=== PATIENT | male | born 1975 | race Caucasian/White ===

== ENCOUNTER 2017-07-16 14:34 | Emergency (ER) | payer MEDICAID ==
[~2017-07-16] VITALS: Ht 175.3 cm; Wt 79.4 kg
[~2017-07-16 14:34] MED LIST: AZITHROMYCIN 2250 MG PO; CEFUROXIME500 MG PO; COREG3.125 MG PO; DOXYCYCLINE 10100 MG PO; LASIX 40 MG TAB40 M2 PO; LASIX 80 MG TAB80 MG PO; LISINOPRIL2.5 M1 PO; LISINOPRIL2.5 MG PO; NAPROSYN500 MG PO; NOHOMEMEDICATIONS; POTASSIUM20 PO; ULTRAM 50MG TAB50 MG PO; XANAX1 MG PO
[2017-07-16] MEDS ORDERED: LASIX 40 MG TAB40 M2 PO (14:48)
[2017-07-16] MEDS ORDERED: LISINOPRIL10 MG PO (14:48)
[2017-07-16] MEDS ORDERED: KLOR-CON 1010 MEQ PO (14:48)
[2017-07-16] MEDS ORDERED: LOPRESSOR25 PO (14:49)
[2017-07-16 16:12] VITALS: BP 112/64
== END 2017-07-16 16:13 | disposition home or self-care (01) ==
LOC: M.ERS 14:34
DX: S20.212A Contusion of left front wall of thorax, initial encounter (principal); S00.83XA Contusion of other part of head, initial encounter; I50.9 Heart failure, unspecified; Z88.8 Allergy status to other drugs, medicaments and biological substances; Y04.0XXA Assault by unarmed brawl or fight, initial encounter; Y93.89 Activity, other specified; Y92.89 Other specified places as the place of occurrence of the external cause; Y99.8 Other external cause status

== ENCOUNTER 2017-07-31 18:49 | Emergency (ER) | payer MEDICAID ==
[~2017-07-31] VITALS: Ht 175.3 cm; Wt 79.4 kg
[~2017-07-31 18:49] MED LIST changes: +KLOR-CON 1010 MEQ PO; +LISINOPRIL10 MG PO; +LOPRESSOR25 PO
[2017-07-31] MEDS ORDERED: AMOXICILLIN 50500 MG PO (19:17)
[2017-07-31] MEDS ORDERED: TRAMADOL 50 MG50 MG PO (19:17)
[2017-07-31 19:27] VITALS: BP 113/64
== END 2017-07-31 19:29 | disposition home or self-care (01) ==
LOC: M.ERS 18:49
DX: S02.5XXA Fracture of tooth (traumatic), initial encounter for closed fracture (principal); N19 Unspecified kidney failure; I50.9 Heart failure, unspecified; Z88.8 Allergy status to other drugs, medicaments and biological substances; X58.XXXA Exposure to other specified factors, initial encounter; Y93.89 Activity, other specified; Y92.89 Other specified places as the place of occurrence of the external cause; Y99.8 Other external cause status

== ENCOUNTER → 2017-09-25 | Outpatient (CLI) | payer MEDICAID ==
[~2017-09-25] MED LIST changes: +AMOXICILLIN 50500 MG PO; +TRAMADOL 50 MG50 MG PO
[2017-09-25 16:14] LABS: CALCIUM 9.2 mg/dL (8.5-10.1); CREATININE 1.2 mg/dL (0.6-1.3); POTASSIUM 3.3 mmol/L (3.5-5.1)
== END ==
LOC: M.LAB 15:56
PROVIDERS: Nurse Practitioner
DX: I42.7 Cardiomyopathy due to drug and external agent (principal)

== ENCOUNTER → 2017-10-15 | Outpatient (CLI) | payer MEDICAID ==
--- NOTE | 2017-10-15 16:48 | 2DMMODE ---
[place] [address] 2 D/M-MODE ECHOCARDIOGRAM Name: JACOB PALMER Room: [facility]#: [id number] Admission: 10/15/17 Attend Phys: Fatuma Moreno, Discharge: Date of : 71 Date of Service: 10/15/17 1648 Report #: [id number] THIS REPORT FOR: //name// APPROVED REPORT Study performed: 10/15/2017 15:42:08 EXAM: Comprehensive 2D, Doppler, and color-flow Echocardiogram Patient Location: Out-Patient Status: routine BSA: 1.93 HR: 77 bpm BP: 93/76 mmHg Other Information Study Quality: Good Indications Cardiomyopathy 2D Dimensions LVEF(%): 29.40 (>50%) IVSd: 11.28 (7-11mm) LVOT Diam: 20.55 (18-24mm) LVDd: 52.99 mm PWd: 11.28 (7-11mm) Ascending Ao: 31.17 (22-36mm) LVDs: 45.63 (25-40mm) Aortic Root: 32.41 mm Chavez's LVEF: 29.40 % Aortic Valve AoV Peak Les.: 0.86 m/s AO Peak Gr.: 2.93 mmHg LVOT Max P.83 mmHg AO Mean Gr.: 1.88 mmHg LVOT Mean P.36 mmHg LVOT Max V: 0.84 m/s AO V2 VTI: 14.67 cm LVOT Mean V: 0.54 m/s FRANCISCO J (VTI): 2.78 cm2 LVOT V1 VTI: 12.28 cm Mitral Valve E/A Ratio: 0.76 MV Decel. Time: 294.22 ms MV E Max Les.: 0.55 m/s MV PHT: 85.32 ms MVA (PHT): 2.58 [place] [address] 2 D/M-MODE ECHOCARDIOGRAM Name: ESTELACOREY Room: [facility]#: [id number] Admission: 10/15/17 Attend Phys: Fatuma Moreno, Discharge: Date of : 71 Date of Service: 10/15/17 1648 Report #: [id number] TDI E/Lateral E': 6.11 E/Medial E': 7.86 Medial E' Les.: 0.07 m/s Lateral E' Les.: 0.09 m/s Pulmonary Valve PV Peak Les.: 0.76 m/s PV Peak Gr.: 2.32 mmHg Left Ventricle The left ventricle is normal size. There is global severe hypokinesis of the left ventricle. Mild concentric left ventricular hypertrophy. Left ventricular systolic function is severely decreased. LVEF is 25-30%. Grade I - abnormal relaxation pattern. Right Ventricle The right ventricle is normal size. The right ventricular systolic function is normal. Atria The left atrium size is normal. The right atrium size is normal. Aortic Valve The aortic valve is normal in structure. No aortic regurgitation is present. There is no aortic valvular stenosis. Mitral Valve The mitral valve is normal in structure. There is no mitral valve regurgitation noted. No evidence of mitral valve stenosis. Tricuspid Valve The tricuspid valve is normal in structure. There is no tricuspid valve regurgitation noted. Pulmonic Valve The pulmonary valve is normal in structure. There is no pulmonic valvular regurgitation. Great Vessels The aortic root is normal in size. IVC is normal in size and collapses with >50% inspiration Pericardium There is no pericardial effusion. <Conclusion> [place] [address] 2 D/M-MODE ECHOCARDIOGRAM Name: JACOB PALMER Room: [facility]#: [id number] Admission: 10/15/17 Attend Phys: Fatuma Moreno, Discharge: Date of : 71 Date of Service: 10/15/17 1648 Report #: [id number] Mild concentric left ventricular hypertrophy. LVEF is 25-30%. There is global severe hypokinesis of the left ventricle. <ELECTRONICALLY SIGNED> By: Jaime Louis MD, [facility] 10/15/17 1648 47 47 Jaime Louis MD, [facility] /INF
== END ==
LOC: M.CRD 15:00
DX: I51.7 Cardiomegaly (principal); I42.9 Cardiomyopathy, unspecified

== ENCOUNTER 2019-04-24 23:12 | Inpatient (IN) | payer OTHER ==
[~2019-04-24] VITALS: Ht 175.3 cm; Wt 77.1 kg
[2019-04-24 23:23] VITALS: BP 102/78
[2019-04-24 23:51] LABS: ABSOLUTE LYMPHOCYTES 1.8 thou/uL (0.8-5.3); ABSOLUTE MONOCYTES 0.5 thou/uL (0.0-1.2); ABSOLUTE NEUTROPHILS 3.5 thou/uL (1.6-8.1); BASOPHILS 0.7 %; EOSINOPHILS 0.7 %; HEMATOCRIT 39.4 % (42.0-52.0); HEMOGLOBIN 13.2 gm/dL (14.0-18.0); LYMPHOCYTES 30.7 %; MCH 27.9 pg (26.0-34.0); MCHC 33.6 g/dL (28.0-37.0); MCV 82.9 fL (80.0-100.0); MONOCYTES 9.3 %; MPV 8.5 fl. (7.2-11.1); NUCLEATED RBCS 0 /100WBC; PLATELET COUNT* 183 thou/uL (150-400); POLYS 58.6 %; RBC 4.74 mil/uL (4.50-6.00); RDW-CV 14.5 % (10.5-14.5); WBC 5.9 thou/uL (4.0-11.0)
[2019-04-24 23:53] LABS: CALCIUM 8.2 mg/dL (8.5-10.1); CREATININE 1.9 mg/dL (0.6-1.3)
[2019-04-24 23:57] LABS: INR 1.3; PROTIME 13.1 Seconds (9.20-11.50)
[2019-04-25] VITALS (7 sets, daily range): BP systolic 109–121; BP diastolic 61–92
[2019-04-25 00:03] LABS: ALBUMIN 3.4 g/dL (3.4-5.0); TOTAL BILIRUBIN 1.8 mg/dL (<0.1-1.0); TOTAL PROTEIN 6.3 g/dL (6.4-8.2)
[2019-04-25 00:16] LABS: INFLUENZA A ANTIGEN Negative (Negative); INFLUENZA B ANTIGEN Negative (Negative)
[2019-04-25 06:06] LABS: URINE BILIRUBIN NEGATIVE (Negative); URINE BLOOD NEGATIVE (Negative); URINE CLARITY CLEAR; URINE COLOR YELLOW; URINE GLUCOSE-RANDOM NEGATIVE (Negative); URINE KETONES NEGATIVE (Negative); URINE LEUKOCYTES-REFLEX NEGATIVE (Negative); URINE NITRITE-REFLEX NEGATIVE (Negative); URINE PROTEIN NEGATIVE (Negative); URINE SPECIFIC GRAVITY 1.025 (1.005-1.030); URINE UROBILINOGEN 0.2 E.U./dl (0.2-1.0)
--- NOTE | 2019-04-25 06:07 | NUR ---
PATIENT ARRIVED TO UNIT AT APPROX 0200. ADMISSION HISTORY AND ASSESSMENT COMPLETED AND CHARTED. VSS ON ROOM AIR, SINUS TACH ON MONITOR. NO COMPLAINTS THROUGHOUT THE NIGHT. FALL PRECAUTIONS IN PLACE DUE TO PATIENT STATING THAT HE FEELS TOO WEAK TO WALK WITHOUT ASSISTANCE. URINAL PROVIDED AND EDUCATION GIVEN ON NEED TO MONITOR STRICT I&O. CALL LIGHT WITHIN REACH. HOURLY ROUNDS COMPLETED. WILL CONTINUE WITH PLAN OF CARE.
[2019-04-25 06:14] LABS: AMP/METHAMP POSITIVE (Negative); BARBITURATES Negative (Negative); BENZODIAZEPINES POSITIVE (Negative); COCAINE Negative (Negative); METHADONE Negative (Negative); OPIATES Negative (Negative); PCP Negative (Negative); THC POSITIVE (Negative)
--- NOTE | 2019-04-25 11:16 | EKG ---
[place] [address] ELECTROCARDIOGRAM REPORT Name: JACOB PALMER Room: [address] ADM IN M.R.#: [id number] Admission: 04/25/19 Attend Phys: Taurus Euceda Discharge: Date of : 71 Report #: [id number] THIS REPORT FOR: //name// [facility] ED Test Date: 2019-04-24 Test Time: 23:44:10 Pat Name: JACOB PALMER Department: Room: [facility] Gender: M Date Night Caregiver: : 1975 Requested By: Meghan Knight Order Number: [id number] MD: Jaime Louis Measurements Intervals [place] Rate: 110 P: 64 NV: 138 QRS: 32 QRSD: 111 T: 216 QT: 346 QTc: 469 Interpretive Statements Sinus tachycardia Probable left atrial enlargement LVH with secondary repolarization abnormality Compared to ECG 12/06/2016 18:38:05 no change Electronically Signed On 04-25-2019 11:15:55 [employer] by Jaime Louis [email or web address] <ELECTRONICALLY SIGNED> By: Jaime Louis MD, [facility] 04/25/19 1115 2344 Jaime Louis MD, [facility] /EPI
[2019-04-25] MEDS ORDERED: LISINOPRIL2.5 MG PO (12:39)
[2019-04-25] MEDS ORDERED: EFFER-K 10 MEQ10 ME1 PO (12:41)
[2019-04-25] MEDS ORDERED: TOPROL XL25 MG PO (12:41)
--- NOTE | 2019-04-25 14:45 | NUR ---
Pt sound asleep when CM went to assess, will f/u later
--- NOTE | 2019-04-25 15:28 | NUR ---
CM ASSESSMENT: MET WITH PT IN ROOM. PT LIVES WITH ROOMMATES IN A HOUSE HE STATES HE RECENTLY STARTED USING METH AGAIN [employer] HAD IT AVAILABLE. PT QUIT TAKING HIS CARDIAC MEDS ABOUT 8 MONTHS AGO BECAUSE HE BELIEVED HE WAS GETTING BETTER AND NO LONGER NEEDED THEM. PT RECENTLY AT [facility] FOR SIMILAR SYMPTOMS. PT STATES HE CANNOT WORK BECAUSE HE IS SOA. DISCUSSED WITH PT APPLYING FOR DISABILITY AND MEDICAID. PT INTERESTED IN DRUG REHAB[facility] UPON DISCHARGE.
--- NOTE | 2019-04-25 15:52 | NUR ---
SPOKE TO [facility] [place] [facility] PT REQUESTED. THEY ONLY ACCEPT PRIVATE INSURANCE. COST IS $1000/DAY WHICH IS NOT FEASIBLE FOR PT. ALSO CALLED [facility] WITH [facility]. THEY HAVE WALK INS M-F 8 TO 11 AM FOR ASSESSMENTS. THIS INFORMATION PROVIDED TO PT ALONG WITH DIRECTIONS. MESSAGE LEFT FOR [facility] TO SEE PT TO ASSIST WITH MEDICAID
--- NOTE | 2019-04-25 18:14 | CON ---
[address] [address] CONSULTATION Name: ESTELAJACOB LAYNE Room: [address] ADM IN M.R.#: [id number] Admission: 04/25/19 Attend Phys: Taurus Euceda Discharge: Date of : 71 Report #: [id number] THIS REPORT FOR: //name// CC: LYNN physician/PCP Johnson Toussaint DATE OF SERVICE: 04/25/2019 HISTORY OF PRESENT ILLNESS: The patient is a 43-year-old single white male who I was asked to see in the hospital today after he complained of chest pain. The patient has an extensive past medical history. He has been admitted several times here to [place]. He was actually here in 2017 with systolic heart failure, felt to be secondary to IV drug abuse. He was noted to have chronic kidney disease. He has been noncompliant in the past because of lack of funds and no insurance. He was last admitted here in 2017 with pneumonia, cardiomyopathy, and nonsustained ventricular tachycardia. He has not been seen in the Cardiology Clinic since 09/2017. The patient has been seen by Psychiatry at [facility] in the past as well. His last echocardiogram in 10/2017 showed an ejection fraction of 30%. The patient quit taking lisinopril and metoprolol because of lack of insurance. He has been taking Lasix as needed for edema. The patient came to the Emergency Room last night complaining of shortness of breath. He had been taking Lasix. He did note a cough. He did complain of some chest discomfort if he took a deep breath. The patient had been seen at [facility] in February that suggested an ejection fraction of less than 20%. PAST MEDICAL HISTORY: He has no history of hypertension or diabetes. MEDICATIONS: His medications at the current time include only Lasix. FAMILY HISTORY: His father had stent. SOCIAL HISTORY: He is . He currently lives with a friend in [place]. 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 No smoking or alcohol abuse. He does use IV illicit drugs including methamphetamine, which he did recently. REVIEW OF SYSTEMS: No history of stroke, asthma, peptic ulcer disease, GI bleeding, or liver disease. He has chronic kidney disease. No cancer. PHYSICAL EXAMINATION: GENERAL: Revealed a middle-aged female who appeared in no distress. VITAL SIGNS: Blood pressure is 120/80. Pulse is 190. He is afebrile. HEENT: He was anicteric. Conjunctivae pink. Mucous membranes moist. NECK: Neck veins were not distended. CHEST: Decreased breath sounds at bases. CARDIOVASCULAR: Regular rate and rhythm. No S3 or [place] [address] CONSULTATION Name: ESTELAJACOB LAYNE Room: [address] IN M.R.#: [id number] Admission: 04/25/19 Attend Phys: Taurus Euceda Discharge: Date of : 71 Report #: [id number]. ABDOMEN: Soft. EXTREMITIES: Had no edema. Dorsalis pedis pulses 2+ bilaterally. SKIN: Warm and dry. NEUROLOGIC: Nonfocal. DIAGNOSTIC DATA: His ECG last night in the Emergency Room showed a sinus tachycardia, left ventricular hypertrophy, and repolarization changes. His workup in the Emergency Room last night; he had a portable chest x-ray that showed cardiomegaly and no evidence of pulmonary edema. LABORATORY WORK: Sodium 138, BUN 32, and creatinine 1.9, it has been as high as 2.0 in the past. His SGOT was 80. Bilirubin 1.8. SGPT 103. His troponins were all 0.06. BNP 5355. His white blood cell count 5.9 and hemoglobin 13.2. IMPRESSION AND RECOMMENDATIONS: 1. Dilated nonischemic cardiomyopathy. Suspect secondary to illicit drug use. I would recommend starting BERTHA inhibitor and metoprolol again. I would not recommend Aldactone due to chronic kidney disease. I would give Lasix as needed for edema. 2. History of IV substance abuse. 3. Chronic kidney disease. 4. Elevated liver function studies. Suspect passive congestion. <ELECTRONICALLY SIGNED> By: Jaime Louis MD, [facility]ACC 04/25/19 1814 0928 1302Dtaqueria Louis MD, FACC /nt
--- NOTE | 2019-04-25 18:54 | NUR ---
VSS, ASSUMED CARE IN THE AM, ASSESSMENT PERFORMED AND CHARTED, FALL PRECAUTIONS IN PLACE AND CALL LIGHT IN REACH, PT IS A&O4 AND ON RA AND IS TRACING ST ON THE MONITOR, PT HAS TAKEN SHOWER, AND IS IN BED SLEEPING NOW HOURLY ROUNDS COMPLETED
[2019-04-25 23:08] LABS: HIV-1/HIV-2 ANTIBODY Non Reactive (Non Reactive)
[2019-04-26] VITALS: BP 110/82
[2019-04-26 03:07] LABS: HEPATITIS B SURFACE AG Negative (Negative)
[2019-04-26 04:00] VITALS: BP 114/85
[2019-04-26 05:02] LABS: HEMATOCRIT 40.1 % (42.0-52.0); HEMOGLOBIN 13.5 gm/dL (14.0-18.0); MCH 27.8 pg (26.0-34.0); MCHC 33.6 g/dL (28.0-37.0); MCV 82.8 fL (80.0-100.0); MPV 8.6 fl. (7.2-11.1); RBC 4.84 mil/uL (4.50-6.00); RDW-CV 15.1 % (10.5-14.5); WBC 5.6 thou/uL (4.0-11.0)
[2019-04-26 05:29] LABS: ALBUMIN 2.9 g/dL (3.4-5.0); CREATININE 1.5 mg/dL (0.6-1.3); MAGNESIUM 1.9 mg/dL (1.8-2.4); PHOSPHORUS* 3.3 mg/dL (2.5-4.9); POTASSIUM 3.2 mmol/L (3.5-5.1)
--- NOTE | 2019-04-26 07:05 | NUR ---
CHANGE OF SHIFT, BEDSIDE REPORT GIVEN PATIENT SEEN AT BEDSIDE,IN BED ASLEEP ASSUMED PATIENT CARE
[2019-04-26 08:00] VITALS: BP 109/83
[2019-04-26 12:05] LABS: ALBUMIN 2.9 g/dL (3.4-5.0); DIRECT BILIRUBIN 0.3 mg/dL (<0.1-0.3); TOTAL BILIRUBIN 1.4 mg/dL (<0.1-1.0); TOTAL PROTEIN 5.7 g/dL (6.4-8.2)
[2019-04-26 12:10] VITALS: BP 116/84
[2019-04-26 16:23] VITALS: BP 108/74
[2019-04-26 20:00] VITALS: BP 112/86
[2019-04-27 00:06] VITALS: BP 110/78
[2019-04-27 03:53] VITALS: BP 99/62
[2019-04-27 05:41] LABS: CALCIUM 8.3 mg/dL (8.5-10.1); CREATININE 1.4 mg/dL (0.6-1.3); MAGNESIUM 1.8 mg/dL (1.8-2.4); POTASSIUM 4.4 mmol/L (3.5-5.1)
--- NOTE | 2019-04-27 07:15 | NUR ---
CHANGE OF SHIFT, BEDSIDE REPORT GIVEN PATIENT SEEN AT BEDSIDE, IN BED WATCHING TV ASSUMED PATIENT CARE
[2019-04-27 08:00] VITALS: BP 114/82
[2019-04-27 12:33] VITALS: BP 99/66
[2019-04-27 16:07] VITALS: BP 112/76
--- NOTE | 2019-04-27 19:01 | NUR ---
I ASSUMED CARE OF THE PATIENT AT 1300 FROM [facility]. PATIENT IS ALERT AND ORIENTED X4, HE IS UP AD RADHA. BED IS IN THE LOW LOCKED POSITON AND CALL LIGHT IS IN REACH. HOURLY ROUNDING IS COMPLETED AND PATIENT NEEDS ARE MET. PAIN IS DENIED AND ANXIETY IS MANAGED WITH PRN MEDS. I&O WAS CHARTED. WILL CONTINUE TO MONITOR.
[2019-04-28] VITALS: BP 101/70
[2019-04-28 03:31] VITALS: BP 112/76
[2019-04-28 06:10] LABS: CALCIUM 8.4 mg/dL (8.5-10.1); CREATININE 1.6 mg/dL (0.6-1.3); POTASSIUM 4.1 mmol/L (3.5-5.1)
--- NOTE | 2019-04-28 06:49 | NUR ---
ASSUMED CARE OF PATIENT AT 1900. PATIENT PLANNED FOR DISCHARGE FROM HOSPITAL IN MORNING. WHEN RELAYING THIS INFORMATION, THE PATIENT IS QUOTED SAYING "HEH, YEAH WE'LL SEE ABOUT THAT. IF THEY CAN." PATIENT'S TONE WAS DISMISSIVE OF THE PLAN OF CARE. CONCERNS WERE RELAYED TO CHARGE NURSE. PATIENT HAS BEEN RECEIVING PRN ATIVAN AT SCHEDULED TIMES DURING THE NIGHT AND HAS FREQUENTLY ASKED FOR MORE. NO SIGNIFICANT EVENTS THIS SHIFT OTHERWISE
[2019-04-28 10:08] VITALS: BP 100/72
[2019-04-28 10:48] VITALS: BP 100/72
[2019-04-28] MEDS ORDERED: LEVO-T50 MCG PO (11:24)
--- NOTE | 2019-04-28 11:30 | NUR ---
IV AND TELE DISCONTINUED. PT UNDERSTANDS ALL FOLLOW UP ORDERS. PT RELEASED INTO [facility] FOR ESCORT OFF OF PROPERTY. CARDIOLOGY FOLLOW UP MADE AND PT GIVEN SCRIPT.
== END 2019-04-28 11:30 | disposition home or self-care (01) | DRG 292 ==
LOC: M.ERS 23:12 → M.TBA-ER 04-25 00:45 → M.2W 04-25 00:45
PROVIDERS: Emergency Medicine; Family Medicine; Internal Medicine; Internal Medicine Cardiovascular Disease; ADMIT Internal Medicine
DX: I50.23 Acute on chronic systolic (congestive) heart failure (principal); N17.9 Acute kidney failure, unspecified; I42.0 Dilated cardiomyopathy; F15.10 Other stimulant abuse, uncomplicated; N18.9 Chronic kidney disease, unspecified; F12.90 Cannabis use, unspecified, uncomplicated; R00.0 Tachycardia, unspecified; F41.9 Anxiety disorder, unspecified; K76.0 Fatty (change of) liver, not elsewhere classified; K75.9 Inflammatory liver disease, unspecified; Z88.8 Allergy status to other drugs, medicaments and biological substances; Z79.899 Other long term (current) drug therapy

== ENCOUNTER 2019-05-04 09:41 | Emergency (ER) | payer OTHER ==
[~2019-05-04] VITALS: Ht 175.3 cm; Wt 77.1 kg
[~2019-05-04 09:41] MED LIST changes: +EFFER-K 10 MEQ10 ME1 PO; +LEVO-T50 MCG PO; +TOPROL XL25 MG PO
[2019-05-04 10:13] LABS: ABSOLUTE EOSINOPHILS 0.1 thou/uL (0.0-0.7); ABSOLUTE LYMPHOCYTES 1.4 thou/uL (0.8-5.3); ABSOLUTE MONOCYTES 0.3 thou/uL (0.0-1.2); BASOPHILS 0.8 %; EOSINOPHILS 1.4 %; HEMATOCRIT 40.6 % (42.0-52.0); HEMOGLOBIN 13.5 gm/dL (14.0-18.0); LYMPHOCYTES 29.6 %; MCH 27.4 pg (26.0-34.0); MCHC 33.2 g/dL (28.0-37.0); MCV 82.5 fL (80.0-100.0); MONOCYTES 5.7 %; NUCLEATED RBCS 0 /100WBC; PLATELET COUNT* 183 thou/uL (150-400); POLYS 62.5 %; RBC 4.92 mil/uL (4.50-6.00); RDW-CV 14.9 % (10.5-14.5); WBC 4.8 thou/uL (4.0-11.0)
[2019-05-04 10:18] LABS: APTT 27.5 Seconds (25.0-31.3); CALCIUM 7.8 mg/dL (8.5-10.1); CREATININE 1.4 mg/dL (0.6-1.3); INR 1.1; POTASSIUM 4.1 mmol/L (3.5-5.1)
[2019-05-04] MEDS ORDERED: LASIX 40 MG TAB40 M2 PO (10:32)
[2019-05-04] MEDS ORDERED: TOPROL XL25 MG PO (10:32)
[2019-05-04] MEDS ORDERED: LISINOPRIL2.5 MG PO (10:32)
[2019-05-04 10:33] LABS: ALBUMIN 3.5 g/dL (3.4-5.0); TOTAL PROTEIN 6.7 g/dL (6.4-8.2)
[2019-05-04 10:44] VITALS: BP 123/95
--- NOTE | 2019-05-05 10:39 | EKG ---
[place] [address] ELECTROCARDIOGRAM REPORT Name: JACOB PALMER Room: [facility].R.#: [id number] Admission: 05/04/19 Attend Phys: Discharge: 05/04/19 Date of : 71 Report #: [id number] THIS REPORT FOR: //name// [facility] ED Test Date: 2019-05-04 Test Time: 09:45:50 Pat Name: JACOB PALMER Department: Room: Gender: M Professional Engineer: : 1975 Requested By: Martín Salas Order Number: [id number] MD: Jaime Louis Measurements Intervals [place] Rate: 106 P: 68 NE: 150 QRS: 41 QRSD: 113 T: 196 QT: 363 QTc: 483 Interpretive Statements Sinus tachycardia Probable left atrial enlargement LVH with secondary repolarization abnormality Anterior ST elevation, probably due to LVH Borderline prolonged QT interval Compared to ECG 04/24/2019 23:44:10 no change Electronically Signed On 05-05-2019 10:38:34 [employer] by Jaime Louis [email or web address] <ELECTRONICALLY SIGNED> By: Jaime Louis MD, [facility] 05/05/19 1038 4 Jaime Louis MD, FAC /EPI
== END 2019-05-04 10:47 | disposition home or self-care (01) ==
LOC: M.ERS 09:41
PROVIDERS: Family Medicine
DX: F41.0 Panic disorder [episodic paroxysmal anxiety] (principal); R06.00 Dyspnea, unspecified; I50.9 Heart failure, unspecified; Z88.8 Allergy status to other drugs, medicaments and biological substances

== ENCOUNTER 2019-06-19 09:19 | Inpatient (IN) | payer OTHER ==
[~2019-06-19] VITALS: Ht 175.3 cm; Wt 76.7 kg
[2019-06-19 09:22] VITALS: BP 115/94
[2019-06-19] MEDS ORDERED: XARELTO10 M1 PO (09:25)
[2019-06-19 10:08] LABS: ABSOLUTE EOSINOPHILS 0.1 thou/uL (0.0-0.7); ABSOLUTE LYMPHOCYTES 1.4 thou/uL (0.8-5.3); ABSOLUTE MONOCYTES 0.4 thou/uL (0.0-1.2); ABSOLUTE NEUTROPHILS 4.2 thou/uL (1.6-8.1); BASOPHILS 0.8 %; EOSINOPHILS 2.2 %; HEMATOCRIT 39.3 % (42.0-52.0); HEMOGLOBIN 12.6 gm/dL (14.0-18.0); LYMPHOCYTES 22.4 %; MCH 26.5 pg (26.0-34.0); MCHC 32.1 g/dL (28.0-37.0); MCV 82.5 fL (80.0-100.0); MONOCYTES 6.6 %; MPV 8.8 fl. (7.2-11.1); NUCLEATED RBCS 0 /100WBC; PLATELET COUNT* 188 thou/uL (150-400); RBC 4.77 mil/uL (4.50-6.00); RDW-CV 19.4 % (10.5-14.5); WBC 6.1 thou/uL (4.0-11.0)
[2019-06-19 10:12] LABS: CALCIUM 9.1 mg/dL (8.5-10.1); CREATININE 1.2 mg/dL (0.6-1.3); POTASSIUM 4.3 mmol/L (3.5-5.1)
[2019-06-19 10:25] LABS: APTT 29.7 Seconds (25.0-31.3); INR 1.3; PROTIME 13.4 Seconds (9.20-11.50)
[2019-06-19 10:38] LABS: ALBUMIN 3.4 g/dL (3.4-5.0); CK-MB MASS 3.4 ng/mL (<0.5-3.6); MAGNESIUM 1.9 mg/dL (1.8-2.4); TOTAL BILIRUBIN 1.1 mg/dL (<0.1-1.0); TOTAL PROTEIN 7.1 g/dL (6.4-8.2)
[2019-06-19 12:42] LABS: AMP/METHAMP POSITIVE (Negative); BARBITURATES Negative (Negative); BENZODIAZEPINES Negative (Negative); COCAINE Negative (Negative); METHADONE Negative (Negative); OPIATES Negative (Negative); PCP Negative (Negative); THC POSITIVE (Negative)
--- NOTE | 2019-06-19 14:19 | EKG ---
[place] [address] ELECTROCARDIOGRAM REPORT Name: JACOB PALMER Room: [place] [address] ADM IN M.R.#: [id number] Admission: 06/19/19 Attend Phys: Jumana regan Sa Discharge: Date of : 71 Date of Service: 06/19/19922 Report #: [id number] THIS REPORT FOR: //name// [facility] ED Test Date: 2019-06-19 Test Time: 09:23:40 Pat Name: JACOB PALMER Department: Room: [facility] Gender: M Senior Service Technician: OCTAVIO : 1975 Requested By: Truong Dan Order Number: [id number] MD: Jaime Louis Measurements Intervals [place] Rate: 114 P: 60 NE: 147 QRS: 69 QRSD: 103 T: 258 QT: 346 QTc: 477 Interpretive Statements Sinus tachycardia Probable left atrial enlargement LVH with secondary repolarization abnormality Borderline prolonged QT interval Compared to ECG 05/04/2019 09:45:50 no change Electronically Signed On 06-19-2019 14:18:36 [employer] by Jaime Louis [email or web address] <ELECTRONICALLY SIGNED> By: Jaime Louis MD, [facility] 06/19/19 1418 0923 0923 Jaime Louis MD, [facility] /EPI
[2019-06-19 16:30] VITALS: BP 109/67
[2019-06-19 19:55] VITALS: BP 116/78
[2019-06-19 20:45] VITALS: BP 109/83
[2019-06-20] VITALS: BP 109/79
[2019-06-20 04:00] VITALS: BP 109/81
[2019-06-20 07:50] VITALS: BP 95/64
[2019-06-20 12:49] VITALS: BP 99/64
[2019-06-20 14:00] LABS: CALCIUM 8.8 mg/dL (8.5-10.1); CREATININE 1.3 mg/dL (0.6-1.3); MAGNESIUM 2.3 mg/dL (1.8-2.4); PHOSPHORUS* 4.3 mg/dL (2.5-4.9); POTASSIUM 4.1 mmol/L (3.5-5.1)
[2019-06-20 20:00] VITALS: BP 99/62
[2019-06-21] VITALS: BP 97/68
[2019-06-21 04:00] VITALS: BP 101/53
[2019-06-21 05:34] LABS: CALCIUM 8.3 mg/dL (8.5-10.1); CREATININE 1.4 mg/dL (0.6-1.3); POTASSIUM 4.3 mmol/L (3.5-5.1)
[2019-06-21 07:53] VITALS: BP 103/68
[2019-06-21 12:12] VITALS: BP 156/64
--- NOTE | 2019-06-21 13:40 | CON ---
[address] [address] CONSULTATION Name: ESTELAJACOB LAYNE Room: [address] IN M.R.#: [id number] Admission: 06/19/19 Attend Phys: Jumana Terrazas Discharge: Date of : 71 Report #: [id number] THIS REPORT FOR: //name// cc: LYNN Stanley family physician/PCP LYNN Stanley family physician/PCP ~ THIS REPORT FOR: //name// CC: Jaime Louis FAM physician/PCP Jumana Renteria DATE OF SERVICE: 06/20/2019 CARDIOLOGY CONSULTATION HISTORY OF PRESENT ILLNESS: The patient is a 43-year-old single white male who I was asked to see in the hospital today after he complained of being short of breath. The patient has a previous history of meth addiction. He has been here in 2017 with shortness of breath. He was found to have evidence of a cardiomyopathy. He has been treated with BERTHA inhibitor and beta mirela. Unfortunately, because of lack of insurance, he ran out of his medications in the past. He was actually admitted here last to [place] in April. He notes that after his discharge, he was admitted to [facility] with shortness of breath and was found to have a clot in his left ventricle. He is placed on Xarelto. He has also recently admitted to [facility] with shortness of breath. He was just discharged last week. He came to the Emergency Room yesterday being short of breath and a cough. He has had no significant edema. He denies waking up at night. He notes occasional hotness in his chest. He notes occasional irregular heartbeat, but no syncope. PAST MEDICAL HISTORY: Significant for no surgical procedures. No history of hypertension, diabetes, hyperlipidemia. CURRENT MEDICATIONS: Consists of Toprol XL 25 mg a day, lisinopril 2.5 mg a day, Lasix 40 mg a day. He quit taking the Xarelto because of bleeding. He is on Synthroid. ALLERGIES: HALDOL. FAMILY HISTORY: Significant that his father had coronary artery bypass surgery. SOCIAL HISTORY: He is single, never been , no children. Currently lives with his dad in [place]. He drinks rarely occasionally. No history of smoking. He has a history of IV drug abuse including methamphetamine, does [place] [address] CONSULTATION Name: ESTELAJACOB LAYNE Room: [address]#: [id number] Admission: 06/19/19 Attend Phys: Jumana Terrazas Discharge: Date of : 71 Report #: [id number] REVIEW OF SYSTEMS: He has a history of stroke. He has a dry cough. No liver disease, no kidney disease, no cancer. No psychiatric illness. No chronic skin condition. PHYSICAL EXAMINATION: GENERAL: Elderly male, lying in bed, appeared in no distress. VITAL SIGNS: His blood pressure is only 100 systolic, pulse is 90, he is afebrile. HEENT: He was anicteric. Conjunctivae pink. Mucous membranes moist. NECK: Veins do not appear distended. CHEST: Clear to auscultation. CARDIOVASCULAR: Regular rate and rhythm. S3 gallop. ABDOMEN: Soft. EXTREMITIES: Had no edema. SKIN: Warm, dry. NEUROLOGIC: Nonfocal. RADIOLOGICAL DATA: His ECG showed a sinus tachycardia, nonspecific T-wave changes. His x-rays last night in the Emergency Room showed cardiomegaly, clear lung farias. LABORATORY DATA: Sodium 140, potassium 4.3, creatinine 1.2. Liver function studies were normal. Troponins all 0.06. BNP 3713. His white blood cell count 6.1, hemoglobin 12.6. IMPRESSION AND RECOMMENDATIONS: 1. Dilated cardiomyopathy. I would continue metoprolol. I would consider switching from lisinopril to losartan because of chronic cough. Continue Lasix. Consider adding Aldactone. 2. Previous thrombus noted in his left ventricle, suspect secondary to his cardiomyopathy. I would not recommend Xarelto at this time. 3. History of IV drug abuse. <ELECTRONICALLY SIGNED> By: Jaime Louis MD, FACC 06/21/19 1340 1252 2127Jaime Louis MD, FAC /nt
[2019-06-21 20:00] VITALS: BP 102/69
[2019-06-22] VITALS: BP 92/61
[2019-06-22 04:00] VITALS: BP 98/64
[2019-06-22 07:52] VITALS: BP 91/56
[2019-06-22 08:28] VITALS: BP 91/56
[2019-06-22] MEDS ORDERED: LEVAQUIN 750 M750 MG PO (09:48)
[2019-06-22] MEDS ORDERED: SPIRONOLACTONE25 MG PO (09:51)
[2019-06-22] MEDS ORDERED: CARVEDILOL3.125 MG PO (09:51)
== END 2019-06-22 14:45 | disposition home or self-care (01) | DRG 177 ==
LOC: M.ERS 09:19 → M.TBA-ER 12:34 → M.2W 19:46
PROVIDERS: Emergency Medicine; Internal Medicine Cardiovascular Disease; ADMIT Family Medicine
DX: J15.6 Pneumonia due to other Gram-negative bacteria (principal); I50.23 Acute on chronic systolic (congestive) heart failure; D68.59 Other primary thrombophilia; I42.0 Dilated cardiomyopathy; I25.5 Ischemic cardiomyopathy; F41.9 Anxiety disorder, unspecified; R00.0 Tachycardia, unspecified; E03.9 Hypothyroidism, unspecified; F19.10 Other psychoactive substance abuse, uncomplicated; Z82.49 Family history of ischemic heart disease and other diseases of the circulatory system; Z23 Encounter for immunization; Z88.8 Allergy status to other drugs, medicaments and biological substances; Z91.14 Patient's other noncompliance with medication regimen; Z79.899 Other long term (current) drug therapy

== ENCOUNTER 2019-07-12 23:31 | Inpatient (IN) | payer OTHER ==
[~2019-07-12] VITALS: Ht 175.3 cm; Wt 73.9 kg
[~2019-07-12 23:31] MED LIST changes: +CARVEDILOL3.125 MG PO; +LEVAQUIN 750 M750 MG PO; +SPIRONOLACTONE25 MG PO; +XARELTO10 M1 PO
[2019-07-12 23:33] VITALS: BP 133/97
[2019-07-13 00:21] LABS: ABSOLUTE EOSINOPHILS 0.1 thou/uL (0.0-0.7); ABSOLUTE LYMPHOCYTES 1.6 thou/uL (0.8-5.3); ABSOLUTE MONOCYTES 0.5 thou/uL (0.0-1.2); ABSOLUTE NEUTROPHILS 4.7 thou/uL (1.6-8.1); BASOPHILS 0.7 %; EOSINOPHILS 1.3 %; HEMATOCRIT 41.3 % (42.0-52.0); HEMOGLOBIN 13.4 gm/dL (14.0-18.0); LYMPHOCYTES 22.7 %; MCHC 32.5 g/dL (28.0-37.0); MONOCYTES 7.9 %; MPV 8.2 fl. (7.2-11.1); NUCLEATED RBCS 0 /100WBC; PLATELET COUNT* 206 thou/uL (150-400); POLYS 67.4 %; RBC 5.16 mil/uL (4.50-6.00); RDW-CV 18.7 % (10.5-14.5)
[2019-07-13 00:25] LABS: CALCIUM 9.4 mg/dL (8.5-10.1); CREATININE 1.4 mg/dL (0.6-1.3); POTASSIUM 4.2 mmol/L (3.5-5.1)
[2019-07-13 00:29] LABS: APTT 26.9 Seconds (25.0-31.3); INR 1.4; PROTIME 13.9 Seconds (9.20-11.50)
[2019-07-13 00:37] LABS: ALBUMIN 4.2 g/dL (3.4-5.0); CK-MB MASS 5.2 ng/mL (<0.5-3.6); MAGNESIUM 2.2 mg/dL (1.8-2.4); TOTAL PROTEIN 7.3 g/dL (6.4-8.2)
[2019-07-13 03:44] VITALS: BP 117/81
[2019-07-13 05:51] LABS: AMP/METHAMP POSITIVE (Negative); BARBITURATES Negative (Negative); BENZODIAZEPINES POSITIVE (Negative); COCAINE Negative (Negative); METHADONE Negative (Negative); OPIATES Negative (Negative); PCP Negative (Negative); THC POSITIVE (Negative)
[2019-07-13 08:00] VITALS: BP 116/77
[2019-07-13 12:15] VITALS: BP 112/82
[2019-07-13 15:48] VITALS: BP 102/79
[2019-07-13 18:34] LABS: URINE BILIRUBIN NEGATIVE (Negative); URINE BLOOD NEGATIVE (Negative); URINE CLARITY CLEAR; URINE COLOR YELLOW; URINE GLUCOSE-RANDOM NEGATIVE (Negative); URINE KETONES NEGATIVE (Negative); URINE LEUKOCYTES-REFLEX NEGATIVE (Negative); URINE NITRITE-REFLEX NEGATIVE (Negative); URINE PROTEIN NEGATIVE (Negative); URINE SPECIFIC GRAVITY 1.025 (1.005-1.030)
[2019-07-13 20:00] VITALS: BP 110/81
[2019-07-14] VITALS: BP 98/80
[2019-07-14 04:00] VITALS: BP 108/67
[2019-07-14 04:03] LABS: ABSOLUTE EOSINOPHILS 0.1 thou/uL (0.0-0.7); ABSOLUTE LYMPHOCYTES 1.2 thou/uL (0.8-5.3); ABSOLUTE MONOCYTES 0.5 thou/uL (0.0-1.2); ABSOLUTE NEUTROPHILS 3.1 thou/uL (1.6-8.1); BASOPHILS 0.6 %; EOSINOPHILS 1.7 %; HEMATOCRIT 38.9 % (42.0-52.0); HEMOGLOBIN 12.6 gm/dL (14.0-18.0); LYMPHOCYTES 25.4 %; MCH 25.8 pg (26.0-34.0); MCHC 32.4 g/dL (28.0-37.0); MCV 79.4 fL (80.0-100.0); MONOCYTES 9.4 %; MPV 8.2 fl. (7.2-11.1); NUCLEATED RBCS 0 /100WBC; PLATELET COUNT* 158 thou/uL (150-400); POLYS 62.9 %; RDW-CV 18.7 % (10.5-14.5); WBC 4.9 thou/uL (4.0-11.0)
[2019-07-14 04:33] LABS: ALBUMIN 3.2 g/dL (3.4-5.0); CALCIUM 8.3 mg/dL (8.5-10.1); CREATININE 1.3 mg/dL (0.6-1.3); TOTAL BILIRUBIN 1.5 mg/dL (<0.1-1.0); TOTAL PROTEIN 5.9 g/dL (6.4-8.2)
[2019-07-14 08:00] VITALS: BP 113/79
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
--- NOTE | 2019-07-14 10:23 | EKG ---
[place] [address] ELECTROCARDIOGRAM REPORT Name: JACOB PALMER Room: [address] ADM IN M.R.#: [id number] Admission: 07/13/19 Attend Phys: Valeriy Maria, Discharge: Date of : 71 Date of Service: 07/12/19 2334 Report #: [id number] THIS REPORT FOR: //name// [facility] ED Test Date: 2019-07-12 Test Time: 23:34:02 Pat Name: JACOB PALMER Department: Room: [facility] Gender: M Residential Care Facility Manager: LOS : 1975 Requested By: Martín Salas Order Number: [id number] MD: Jaime Louis Measurements Intervals [place] Rate: 99 P: 61 IA: 156 QRS: 19 QRSD: 116 T: 166 QT: 385 QTc: 495 Interpretive Statements Sinus rhythm Probable left atrial enlargement Left ventricular hypertrophy Nonspecific T abnormalities, lateral leads Borderline prolonged QT interval Compared to ECG 06/19/2019 09:23:40 T-wave abnormality now present Sinus tachycardia no longer present Electronically Signed On 07-14-2019 10:22:21 CDT by Jaime Louis [email or web address] <ELECTRONICALLY SIGNED> By: Jaime Louis MD, FACC 07/14/19 1022 2334 2334 Jaime Louis MD, FAC /EPI
[2019-07-14] MEDS ORDERED: LISINOPRIL2.5 MG PO ×2 (10:25→10:28)
[2019-07-14 10:26] LABS: CALCIUM 7.7 mg/dL (8.5-10.1); CREATININE 1.2 mg/dL (0.6-1.3); POTASSIUM 3.8 mmol/L (3.5-5.1)
[2019-07-14] MEDS ORDERED: EFFER-K 10 MEQ10 ME1 PO (10:28)
[2019-07-14] MEDS ORDERED: LEVO-T50 MCG PO (10:28)
[2019-07-14] MEDS ORDERED: CARVEDILOL3.125 MG PO (10:28)
[2019-07-14] MEDS ORDERED: SPIRONOLACTONE25 MG PO (10:28)
[2019-07-14] MEDS ORDERED: LASIX 40 MG TAB40 M2 PO (10:28)
[2019-07-14 11:36] VITALS: BP 113/79
[2019-07-14 12:03] VITALS: BP 108/77
--- NOTE | 2019-07-14 12:49 | 2DMMODE ---
[place] [address] 2 D/M-MODE ECHOCARDIOGRAM Name: ESTELAJACOB LAYNE Room: [address] ADM [place] .R.#: [id number] Admission: 07/13/19 Attend Phys: Valeriy Maria, Discharge: Date of : 71 Date of Service: 07/14/19 1248 Report #: [id number] THIS REPORT FOR: cc: FAM - No family physician/PCP FAM - No family physician/PCP Jaime Louis MD [facility] ~ APPROVED REPORT Study performed: 07/14/2019 11:24:17 EXAM: Comprehensive 2D, Doppler, and color-flow Echocardiogram Patient Location: In-Patient Room #: [facility] Status: routine BSA: 1.89 HR: 103 bpm BP: 113/79 mmHg Rhythm: NSR Other Information Study Quality: Excellent Indications Dyspnea Elevated Troponin Chest Pain 2D Dimensions IVSd: 13.04 (7-11mm) LVOT Diam: 24.07 (18-24mm) LVDd: 67.84 mm PWd: 12.75 (7-11mm) Ascending Ao: 30.03 (22-36mm) LVDs: 66.68 (25-40mm) Aortic Root: 33.72 mm Volumes Left Atrial Volume (Systole) LA ESV Index: 53.70 mL/m2 Aortic Valve AoV Peak Les.: 0.90 m/s AO Peak Gr.: 3.27 mmHg LVOT Max P.87 mmHg AO Mean Gr.: 1.97 mmHg LVOT Mean P.45 mmHg LVOT Max V: 0.47 m/s AO V2 VTI: 12.89 cm LVOT Mean V: 0.31 m/[place] [address] 2 D/M-MODE ECHOCARDIOGRAM Name: JACOB PALMER Room: [address] IN M.R.#: [id number] Admission: 07/13/19 Attend Phys: Valeriy Maria, Discharge: Date of : 71 Date of Service: 07/14/19 1248 Report #: [id number] FRANCISCO J (VTI): 2.34 cm2 LVOT V1 VTI: 6.62 cm Mitral Valve E/A Ratio: 1.49 MV Decel. Time: 103.60 ms MV E Max Les.: 0.93 m/s MV PHT: 30.04 ms MVA (PHT): 7.32 cm2 TDI E/Lateral E': 9.30 E/Medial E': 15.50 Medial E' Les.: 0.06 m/s Lateral E' Les.: 0.10 m/s Pulmonary Valve PV Peak Les.: 0.72 m/s PV Peak Gr.: 2.10 mmHg Tricuspid Valve RAP Estimate: 15.00 mmHg TR Peak Gr.: 41.44 mmHg RVSP: 56.00 mmHg PA Pressure: 56.00 mmHg Left Ventricle Left ventricle is moderately dilated. There is global hypokinesis of the left ventricle. Mild concentric left ventricular hypertrophy. Left ventricular systolic function is severely decreased. LVEF is 10-15%. Grade I - abnormal relaxation pattern. Right Ventricle The right ventricle is normal size. The right ventricular systolic function is normal. Atria Left atrium is severely dilated. The right atrium size is normal. Aortic Valve The aortic valve is normal in structure. No aortic regurgitation is present. There is no aortic valvular stenosis. Mitral Valve There is mitral annular calcification. Mild mitral regurgitation. No evidence of mitral valve stenosis. Tricuspid Valve The tricuspid valve is normal in structure. [place] [address] 2 D/M-MODE ECHOCARDIOGRAM Name: ESTELAJACOB LAYNE Room: [address] [facility]#: [id number] Admission: 07/13/19 Attend Phys: Valeriy Maria, Discharge: Date of : 71 Date of Service: 07/14/19 1248 Report #: [id number] regurgitation. estimated pa pressure 50 mm Hg Pulmonic Valve The pulmonary valve is normal in structure. There is no pulmonic valvular regurgitation. Great Vessels The aortic root is normal in size. IVC is dilated and collapses <50% with inspiration. Pericardium Trace pericardial effusion. <Conclusion> Left ventricle is moderately dilated. Mild concentric left ventricular hypertrophy. LVEF is 10-15%. Mild mitral regurgitation. Left atrium is severely dilated. Moderate tricuspid regurgitation. estimated pa pressure 50 mm Hg <ELECTRONICALLY SIGNED> By: Jaime Louis MD, FACC 07/14/19 1248 1248 1248 Jaime Louis MD, FACC /INF
== END 2019-07-14 20:00 | disposition home or self-care (01) | DRG 292 ==
LOC: M.ERS 23:31 → M.2W 07-13 02:50 → M.TBA-ER 07-13 02:50 → M.2W 07-13 04:11
PROVIDERS: Family Medicine; Internal Medicine; ADMIT Internal Medicine
DX: I50.23 Acute on chronic systolic (congestive) heart failure (principal); I42.9 Cardiomyopathy, unspecified; R65.10 Systemic inflammatory response syndrome (SIRS) of non-infectious origin without acute organ dysfunction; F15.10 Other stimulant abuse, uncomplicated; F12.10 Cannabis abuse, uncomplicated; F13.10 Sedative, hypnotic or anxiolytic abuse, uncomplicated; F41.9 Anxiety disorder, unspecified; E03.9 Hypothyroidism, unspecified; Z91.19 Patient's noncompliance with other medical treatment and regimen; Z79.899 Other long term (current) drug therapy; Z88.8 Allergy status to other drugs, medicaments and biological substances; Z83.3 Family history of diabetes mellitus; Z82.49 Family history of ischemic heart disease and other diseases of the circulatory system

== ENCOUNTER 2019-07-19 20:34 | Inpatient (IN) | payer OTHER ==
[~2019-07-19] VITALS: Ht 175.3 cm; Wt 73.9 kg
[2019-07-19 20:40] VITALS: BP 114/84
[2019-07-19 21:32] LABS: ABSOLUTE EOSINOPHILS 0.1 thou/uL (0.0-0.7); ABSOLUTE LYMPHOCYTES 1.4 thou/uL (0.8-5.3); ABSOLUTE MONOCYTES 0.4 thou/uL (0.0-1.2); ABSOLUTE NEUTROPHILS 3.3 thou/uL (1.6-8.1); BASOPHILS 0.9 %; EOSINOPHILS 1.7 %; HEMATOCRIT 38.8 % (42.0-52.0); HEMOGLOBIN 12.5 gm/dL (14.0-18.0); LYMPHOCYTES 27.4 %; MCH 25.5 pg (26.0-34.0); MCHC 32.1 g/dL (28.0-37.0); MCV 79.5 fL (80.0-100.0); MONOCYTES 7.7 %; MPV 8.1 fl. (7.2-11.1); NUCLEATED RBCS 0 /100WBC; PLATELET COUNT* 172 thou/uL (150-400); POLYS 62.3 %; RBC 4.89 mil/uL (4.50-6.00); RDW-CV 18.4 % (10.5-14.5); WBC 5.3 thou/uL (4.0-11.0)
[2019-07-19 21:41] LABS: CALCIUM 8.3 mg/dL (8.5-10.1); CREATININE 1.4 mg/dL (0.6-1.3); POTASSIUM 3.7 mmol/L (3.5-5.1)
[2019-07-19 21:50] LABS: ALBUMIN 3.7 g/dL (3.4-5.0); TOTAL BILIRUBIN 1.8 mg/dL (<0.1-1.0); TOTAL PROTEIN 6.5 g/dL (6.4-8.2)
[2019-07-19 21:51] LABS: INFLUENZA A ANTIGEN Negative (Negative); INFLUENZA B ANTIGEN Negative (Negative)
[2019-07-20 00:04] VITALS: BP 117/85
[2019-07-20 00:05] VITALS: BP 108/70
[2019-07-20 06:20] VITALS: BP 108/80
--- NOTE | 2019-07-20 06:34 | NUR ---
PATIENT VERY ANXIOUS SUSPECT POSSIBLE DRUG WITHDRAW. HE HAS RAN SINUS RHYTHM SHOWING ST DEPRESSION AND TACHY. FLUIDS RUNNING 100 MLS ALL SHIFT SINCE HE ARRIVED AT 0100. TROPONIN ELEVATED AT 0.06. HE DID NOT REPORT ANY NAUSEA, PAIN OR VOMITING. I ASKED FOR A URINE SAMPLE UPON ARRIVAL, AT 0635 STILL NO SAMPLE. HE HAS A SLIGHT COUGH AND AFEBRILE. COVID PENDING. UP AD RADHA TO RESTROOM AND ALERT AND ORIENTED. WILL CONTINUE TO MONITOR.
[2019-07-20 13:41] LABS: HEMOGLOBIN 12.1 gm/dL (14.0-18.0); MCH 25.7 pg (26.0-34.0); MCHC 32.6 g/dL (28.0-37.0); MCV 78.9 fL (80.0-100.0); MPV 8.3 fl. (7.2-11.1); RBC 4.69 mil/uL (4.50-6.00); WBC 3.7 thou/uL (4.0-11.0)
[2019-07-20 14:02] LABS: URINE BILIRUBIN NEGATIVE (Negative); URINE BLOOD NEGATIVE (Negative); URINE CLARITY CLEAR; URINE COLOR YELLOW; URINE GLUCOSE-RANDOM NEGATIVE (Negative); URINE KETONES NEGATIVE (Negative); URINE LEUKOCYTES-REFLEX NEGATIVE (Negative); URINE NITRITE-REFLEX NEGATIVE (Negative); URINE PROTEIN NEGATIVE (Negative); URINE SPECIFIC GRAVITY 1.025 (1.005-1.030)
[2019-07-20 14:05] LABS: ANION GAP 11 mmol/L (7-16); BUN 22 mg/dL (7-18); CHLORIDE 105 mmol/L (98-107); CO2 24 mmol/L (21-32); CREATININE 1.2 mg/dL (0.6-1.3); GLUCOSE 102 mg/dL (70-99); POTASSIUM 3.6 mmol/L (3.5-5.1); SODIUM 140 mmol/L (136-145); TROPONIN-I LEVEL <0.06 ng/mL (<0.06)
[2019-07-20 15:28] LABS: AMP/METHAMP POSITIVE (Negative); BARBITURATES Negative (Negative); BENZODIAZEPINES POSITIVE (Negative); COCAINE Negative (Negative); METHADONE Negative (Negative); OPIATES Negative (Negative); PCP Negative (Negative); THC POSITIVE (Negative)
[2019-07-20] MEDS ORDERED: LEVAQUIN 500 M500 M3 PO (15:53)
[2019-07-20 17:32] VITALS: BP 108/80
--- NOTE | 2019-07-20 20:17 | NUR ---
PT DISCHARGED TO HOME IN STABLE CONDITION. INSTRUCTIONS,TREATMENTS,MEDICATIONS,ACTIVITY, FOLLOW UP INFORMATION AND SELF CARE REVIEWED WITH PT AND PT REPORTS UNDERSTANDING WITHOUT FURTHER QUESTIONS. 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
--- NOTE | 2019-07-21 10:14 | EKG ---
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 : 1975 Requested By: Ngoc Claros Order Number: [id number] Sallie MD: Jaime Louis Measurements Intervals [place] Rate: 115 P: 69 LA: 148 QRS: 11 QRSD: 111 T: 155 QT: 355 QTc: 491 Interpretive Statements Sinus tachycardia Probable left atrial enlargement LVH with IVCD and secondary repol abnrm Borderline prolonged QT interval Baseline wander in lead(s) V6 Compared to ECG 07/12/2019 23:34:02 Early repolarization now present Sinus rhythm no longer present Electronically Signed On 07-21-2019 10:12:39 CDT by Jaime Louis [email or web address] <ELECTRONICALLY SIGNED> By: Jaime Louis MD, [facility] 07/21/191011 41 41 Jaime Louis MD, [facility] /EPI
== END 2019-07-20 22:40 | disposition home or self-care (01) | DRG 202 ==
LOC: M.ERS 20:34 → M.TBA-ER 22:19 → M.ORTHSURG 23:58
PROVIDERS: Physician Assistant; ADMIT Internal Medicine
DX: J40 Bronchitis, not specified as acute or chronic (principal); I42.9 Cardiomyopathy, unspecified; I50.20 Unspecified systolic (congestive) heart failure; F12.90 Cannabis use, unspecified, uncomplicated; N18.2 Chronic kidney disease, stage 2 (mild); Z03.818 Encounter for observation for suspected exposure to other biological agents ruled out; Z88.8 Allergy status to other drugs, medicaments and biological substances; Z91.19 Patient's noncompliance with other medical treatment and regimen

== ENCOUNTER 2019-08-12 16:50 | Emergency (ER) | payer MEDICAID ==
[~2019-08-12] VITALS: Ht 175.3 cm; Wt 74.8 kg
[~2019-08-12 16:50] MED LIST changes: +LEVAQUIN 500 M500 M3 PO
[2019-08-12 17:16] LABS: ABSOLUTE EOSINOPHILS 0.1 thou/uL (0.0-0.7); ABSOLUTE LYMPHOCYTES 1.3 thou/uL (0.8-5.3); ABSOLUTE MONOCYTES 0.4 thou/uL (0.0-1.2); ABSOLUTE NEUTROPHILS 2.8 thou/uL (1.6-8.1); BASOPHILS 0.9 %; EOSINOPHILS 2.3 %; HEMATOCRIT 38.7 % (42.0-52.0); HEMOGLOBIN 12.6 gm/dL (14.0-18.0); MCH 25.6 pg (26.0-34.0); MCHC 32.5 g/dL (28.0-37.0); MCV 78.9 fL (80.0-100.0); MONOCYTES 7.8 %; NUCLEATED RBCS 0 /100WBC; PLATELET COUNT* 188 thou/uL (150-400); RBC 4.91 mil/uL (4.50-6.00); RDW-CV 18.5 % (10.5-14.5); WBC 4.5 thou/uL (4.0-11.0)
[2019-08-12 17:25] LABS: CALCIUM 8.4 mg/dL (8.5-10.1); CREATININE 1.4 mg/dL (0.6-1.3); POTASSIUM 4.1 mmol/L (3.5-5.1)
[2019-08-12 17:35] LABS: ALBUMIN 3.3 g/dL (3.4-5.0); TOTAL BILIRUBIN 0.8 mg/dL (<0.1-1.0); TOTAL PROTEIN 6.1 g/dL (6.4-8.2)
[2019-08-12 17:41] LABS: APTT 25.1 Seconds (25.0-31.3); INR 1.2
[2019-08-12 18:37] LABS: AMP/METHAMP Negative (Negative); BARBITURATES Negative (Negative); BENZODIAZEPINES Negative (Negative); COCAINE POSITIVE (Negative); METHADONE Negative (Negative); OPIATES Negative (Negative); PCP Negative (Negative); THC POSITIVE (Negative)
[2019-08-12 19:52] VITALS: BP 106/68
--- NOTE | 2019-08-13 17:30 | EKG ---
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[place] [facility] [place] 1975 Requested By: Sarah Sellers Order Number: [id number] MD: Matthew Vivas Measurements Intervals [place] Rate: 94 P: 71 DE: 149 QRS: 46 QRSD: 114 T: 237 QT: 395 QTc: 495 Interpretive Statements Sinus rhythm Probable left atrial enlargement LVH with secondary repolarization abnormality Borderline prolonged QT interval Compared to ECG 07/19/2019 20:42:04 Sinus tachycardia no longer present Intraventricular conduction delay no longer present Electronically Signed On 08-13-2019 17:28:35 CDT by Matthew Vivas [email or web address] <ELECTRONICALLY SIGNED> By: Matthew Vivas MD, FACC 08/13/19 1728 1659 1659 Matthew Vivas MD, [facility] /EPI
== END 2019-08-12 19:52 | disposition home or self-care (01) ==
LOC: M.ERS 16:50
PROVIDERS: Personal Emergency Response Attendant
DX: R07.89 Other chest pain (principal); I50.9 Heart failure, unspecified; Z88.8 Allergy status to other drugs, medicaments and biological substances